=== PATIENT | female | born 1970 | race Caucasian/White ===

== ENCOUNTER 2017-01-21 17:40 | Emergency (ER) | payer OTHER ==
[~2017-01-21] VITALS: Ht 170.2 cm; Wt 68.0 kg
[2017-01-21 17:48] VITALS: BP 126/82
[2017-01-21] MEDS ORDERED: MORPHINE SULFATE INJ 4 MG/ML DISP.SYRIN ONE ×2 (18:19→19:02)
[2017-01-21] MEDS ORDERED: ONDANSETRON HCL/PF 4 MG/2 ML VIAL ONE (18:19)
[2017-01-21] MEDS ORDERED: MORPHINE SULFATE INJ 2 MG/ML DISP.SYRIN IM ONE ×2 (18:30→19:00)
[2017-01-21] MEDS ORDERED: ONDANSETRON HCL/PF - ER 4 MG/2 ML VIAL IM ONE (18:30)
== END 2017-01-21 19:35 | disposition home or self-care (01) ==
LOC: EDUNIT# 17:40 → ER 17:41
DX: G89.29 Other chronic pain (principal); E03.9 Hypothyroidism, unspecified; G89.4 Chronic pain syndrome; F17.200 Nicotine dependence, unspecified, uncomplicated; Z90.89 Acquired absence of other organs; Z90.710 Acquired absence of both cervix and uterus
CPT/HCPCS: 96372 ×3; 99284; A4606; J2270 ×2; J2405; Z7610